=== PATIENT | female | born 1945 | race African-American/Black ===

== ENCOUNTER 2019-09-16 18:29 | Inpatient (IN) | payer MEDICARE ==
[~2019-09-16] VITALS: Ht 160 cm; Wt 75.7 kg
[2019-09-16] MEDS ORDERED: SODIUM CHLORIDE 0.9% 1,000 ML IV ONE (19:30)
[2019-09-16] MEDS ORDERED: VANCOMYCIN PER PHARMACY 1,000 MG IV SCH (19:45)
[2019-09-16] MEDS ORDERED: VANCOMYCIN 1GM/250ML 250 ML IV ONE (20:00)
[2019-09-16 20:06] LABS: Basophils # (auto) 0 uL; Basophils % (auto) 0.3 % (0.0-2.0); Eosinophils # (auto) 0 uL; Hemoglobin 13.1 g/dL (12.2-16.2); Lymphocytes # (auto) 0.2 uL; Mean Corpuscular Hemoglobin 32.7 pg (28.0-32.0); Mean Corpuscular Hgb Conc. 31.5 g/dL (32.0-36.0); Monocytes # (auto) 0.3 uL; Nucleated Red Blood Cells % 0.1 %
[2019-09-16 20:08] LABS: Hematocrit 41.5 % (36.0-46.0); Lymphocytes % (auto) 3.8 % (10.0-50.0); Mean Corpuscular Volume 103.7 fL (80.0-100.0); Monocytes % (auto) 5.9 % (0.0-12.0); Neutrophils # (auto) 5.1 uL; Platelet Count (auto) 216 10^3/uL (140-450); Red Cell Distribution Width 14.3 % (11.8-14.3); White Blood Cell 5.7 10^3/uL (4.4-10.8)
[2019-09-16 20:27] LABS: Albumin 3.2 g/dL (3.4-5.0)
[2019-09-16 20:30] LABS: Bilirubin, Total 0.3 mg/dL (0.2-1.0); Total Protein 8.3 g/dL (6.4-8.2)
[2019-09-16 21:22] LABS: Lactic Acid w/Reflex 3.8 mmol/L (0.4-2.0)
[2019-09-16 22:19] LABS: Partial Thromboplastin Time 26.1 sec (23.64-32.05)
[2019-09-16] MEDS ORDERED: SODIUM CHLORIDE 0.9% 2,550 ML IV ONE (22:30)
[2019-09-16 22:35] LABS: Urine Bacteria NONE SEEN /hpf (None Seen); Urine Blood 2+ /uL (Negative); Urine Mucus MODERATE (None Seen); Urine WBC 1549 /hpf (0 - 5)
[2019-09-17] MEDS ORDERED: TEMAZEPAM 15 MG CAP PO PRN (00:15)
[2019-09-17] MEDS ORDERED: VANCOMYCIN PER PHARMACY 0 MG IV SCH (00:15)
[2019-09-17] MEDS ORDERED: MORPHINE SULF INJ 2 MG/ML SYRINGE 1ML IV PRN (00:15)
[2019-09-17] MEDS ORDERED: NITROGLYCERIN 0.4 MG SL TAB SL PRN (00:15)
[2019-09-17] MEDS ORDERED: FLEET ENEMA(ADULT) 135 ML PR ONE (00:15)
[2019-09-17 00:52] VITALS: BP 114/57
--- NOTE | 2019-09-17 02:00 | NUR ---
Telemetry admit from [facility] admitted to Telemetry unit after SBAR received. Patient oriented to Catarina pope RN, unit, room, bed, and unit policies regarding patient care and visiting hours. Patient now on continuous telemetry monitoring, tele box # 70 and telemetry reading on arrival to unit is SR 95. Patient placed on bedside oxygen, weighed by bed scale and encouraged to call if they need something. All questions and concerns addressed, patient verbalized understanding. Note: Came per jeffcher awake alert, placed in the bed comfortably, vital signs checked.
[2019-09-17] MEDS: ACETAMINOPHEN 325 MG TAB PO PRN ×2 (02:51→12:59)
--- NOTE | 2019-09-17 03:00 | NUR ---
Inserted a Delarosa catheter size 16, with yellow clear urine output coming out of the catheter.
[2019-09-17] MEDS ORDERED: ACET-1156 PO (03:37)
[2019-09-17] MEDS: SODIUM CHLORIDE 0.9% 1,000 ML IV SCH ×2 (04:00→12:58)
[2019-09-17 05:00] VITALS: BP 106/51
[2019-09-17] MEDS ORDERED: PIPERACILLIN-TAZOB 3.375GM 100 ML IV SCH (06:00)
--- NOTE | 2019-09-17 06:00 | NUR ---
IV insertion IV access obtained, via clean sterile technique by inserting gauge catheter at right hand after attempt. IV secured properly. No trauma to site. Patient tolerated procedure well.
--- NOTE | 2019-09-17 06:00 | NUR ---
IV removal IV DC'd in the right A.C with sterile technique, catheter fully intact. Pressure dressing applied to site. Patient tolerated procedure well.
--- NOTE | 2019-09-17 07:14 | NUR ---
Report given to Anjum Angulo, library cataloging technician. at bedside.
--- NOTE | 2019-09-17 08:00 | NUR ---
Opening Shift Note Assumed care of patient. PT is awake and alert. No S/S of distress/SOB or pain. Instructed on POC and to call for assist PRN, will continue to monitor for changes Q1hr and PRN.
[2019-09-17 08:11] VITALS: BP 92/56
[2019-09-17] MEDS: PANTOPRAZOLE 40 MG TAB PO SCH (11:27)
[2019-09-17] MEDS: DOCUSATE SOD 100 MG CAP PO SCH ×2 (11:27→22:00)
[2019-09-17] MEDS: VANCOMYCIN 1GM/250ML 250 ML IV SCH (11:28)
[2019-09-17] MEDS ORDERED: IOHEXOL 350 MG/ML 100ML IJ ONE (12:34)
[2019-09-17] MEDS: ONDANSETRON HCL 4 MG/2 ML VIAL IV PRN ×2 (12:58→20:53)
[2019-09-17 13:00] VITALS: BP 104/55
--- NOTE | 2019-09-17 13:00 | NUR ---
PT REFUSED TO SIGN CT CONSENT WITHOUT SON PRESENT. CALLED SON. NO ANSWER. LEFT VOICEMAIL.
--- NOTE | 2019-09-17 16:00 | NUR ---
MULTIPLE ATTEMPTS TO CONTACT SON. NO ANSWER. RADIOLOGY IS AWARE. STATED THEY MAY ATTEMPT VQ SCAN TOMORROW IF CT CONSENT CAN NOT BE OBTAINED.
[2019-09-17 16:48] VITALS: BP 100/56
[2019-09-17] MEDS: PIPERACILLIN-TAZOB 3.375GM 100 ML IV SCH (20:00)
--- NOTE | 2019-09-17 20:00 | NUR ---
Opening Shift Note Assumed care of patient, awake and alert. No S/S of distress/SOB or pain. Instructed on POC and to call for assist PRN, will continue to monitor for changes Q1hr and PRN.
--- NOTE | 2019-09-17 21:00 | NUR ---
LINENS CHANGED PATIENT HAD SMALL LIQUID BOWEL MOVEMENT. PATIENT REFUSING COLACE AT THIS TIME. WILL CONTINUE TO MONITOR.
[2019-09-17 22:00] VITALS: BP 107/63
[2019-09-18] MEDS: PIPERACILLIN-TAZOB 3.375GM 100 ML IV SCH ×5 (00:35→23:30)
[2019-09-18] MEDS: SODIUM CHLORIDE 0.9% 1,000 ML IV SCH ×2 (01:15→15:06)
[2019-09-18 05:00] VITALS: BP 124/71
--- NOTE | 2019-09-18 06:23 | NUR ---
ATTEMPTED TO CONTACT SON AGAIN. NO RESPONSE. WILL ENDORSE TO ASHLEY BUTCHER.
[2019-09-18 06:26] LABS: Basophils # (auto) 0 uL; Basophils % (auto) 0.6 % (0.0-2.0); Eosinophils # (auto) 0 uL; Eosinophils % (auto) 0.4 % (0.0-7.0); Hematocrit 31.6 % (36.0-46.0); Hemoglobin 10.5 g/dL (12.2-16.2); Lymphocytes # (auto) 0.9 uL; Lymphocytes % (auto) 17.2 % (10.0-50.0); Mean Corpuscular Hemoglobin 33.1 pg (28.0-32.0); Mean Corpuscular Hgb Conc. 33.2 g/dL (32.0-36.0); Mean Corpuscular Volume 99.6 fL (80.0-100.0); Monocytes # (auto) 0.4 uL; Monocytes % (auto) 7.2 % (0.0-12.0); Neutrophils # (auto) 3.9 uL; Neutrophils % (auto) 74.6 % (37.0-80.0); Platelet Count (auto) 182 10^3/uL (140-450); Red Blood Cells 3.18 10^6/uL (4.0-5.20); Red Cell Distribution Width 13.7 % (11.8-14.3); White Blood Cell 5.3 10^3/uL (4.4-10.8)
[2019-09-18 07:35] LABS: BUN/Creatinine Ratio 19.5; Calcium 8.5 mg/dL (8.5-10.1); Potassium 3.1 mmol/L (3.5-5.1)
--- NOTE | 2019-09-18 08:15 | NUR ---
Opening Note Assumed care of patient, she is A & O x3, she does not remember the month or year a this time. Patient is comfortable at this time. POC discussed. Will continue to turn patient Q2h, she states that she transfers to a wheel chair at home and to the toilet with her son. She has not been up since she has been in the hospital, SCDs in place bilaterally. Bed is in lowest, locked position, call light within reach, bed alarm on. Will continue to monitor Q1h and PRN.
[2019-09-18 08:59] VITALS: BP 145/85
[2019-09-18] MEDS: ONDANSETRON HCL 4 MG/2 ML VIAL IV PRN (09:29)
[2019-09-18] MEDS: PANTOPRAZOLE 40 MG TAB PO SCH (09:29)
[2019-09-18] MEDS: DOCUSATE SOD 100 MG CAP PO SCH ×2 (09:30→22:00)
[2019-09-18] MEDS: ACETAMINOPHEN 325 MG TAB PO PRN (09:30)
--- NOTE | 2019-09-18 10:00 | NUR ---
Spoke to Mirtha in radiology They will do a VQ scan on patient instead of CT with contrast per Dr. Ruth, they can still see a PE with this exam and no consents needed, they have been unsuccessful with contacting the patient son for consent, patient wants her son to give consent. Will let know.
[2019-09-18] MEDS: VANCOMYCIN 1GM/250ML 250 ML IV SCH (11:42)
--- NOTE | 2019-09-18 12:30 | NUR ---
Dr. Grene at bedside. Informed Dr. Green of decreased potassium level, and the VQ scan that may have to be done if family cannot be contacted. Orders received, read back and verified. Will continue to monitor Q1h and PRN.
[2019-09-18] MEDS ORDERED: POTASSIUM CHL 20 Meq TABLET PO ONE (13:00)
--- NOTE | 2019-09-18 13:00 | NUR ---
Patient has had two loose BM today. She is incontinent of stool.
[2019-09-18 13:45] VITALS: BP 118/71
--- NOTE | 2019-09-18 16:08 | NUR ---
Spoke to son on telephone regarding CT with contrast Two RNs, myself and Kristi Hardwick spoke to son Narciso, he agreed to have the CT chest with contrast. Patient also agreed if son said okay. Will notify Radiology.
[2019-09-18] MEDS ORDERED: IOHEXOL 350 MG/ML 100ML IJ ONE (16:17)
[2019-09-18 16:51] VITALS: BP 119/68
[2019-09-18 22:00] VITALS: BP 147/88
[2019-09-19] MEDS: SODIUM CHLORIDE 0.9% 1,000 ML IV SCH ×2 (02:15→14:45)
[2019-09-19 05:00] VITALS: BP 154/91
[2019-09-19] MEDS: PIPERACILLIN-TAZOB 3.375GM 100 ML IV SCH ×3 (05:36→18:00)
--- NOTE | 2019-09-19 08:00 | NUR ---
Opening Note Assumed care of patient, she is A & O x3, no s/s of distress. Patient is bed rest and Q2h turn, patient is comfortable at this time, SCDs bilaterally to lower extremities. POC discussed. Bed is in lowest, locked position, call light within reach. Will continue to monitor Q1h and PRN.
[2019-09-19 09:00] VITALS: BP 140/86
[2019-09-19] MEDS: DOCUSATE SOD 100 MG CAP PO SCH (09:26)
[2019-09-19] MEDS: PANTOPRAZOLE 40 MG TAB PO SCH (09:27)
[2019-09-19] MEDS: VANCOMYCIN 1GM/250ML 250 ML IV SCH (11:00)
--- NOTE | 2019-09-19 11:35 | NUR ---
Dr. Green at bedside Son at bedside. Informed patient and son that she will be getting discharged. The son needed to go home to get a few things ready for the family member. Will continue to monitor patient at this time.
[2019-09-19 13:00] VITALS: BP 140/82
--- NOTE | 2019-09-19 14:00 | NUR ---
Patient spoke to family and said he will be on his way soon to pick her up.
--- NOTE | 2019-09-19 16:15 | NUR ---
This RN called to speak to son Narciso, he will be here soon to cook pickled meat patient.
[2019-09-19 16:44] VITALS: BP 146/80
--- NOTE | 2019-09-19 17:30 | NUR ---
Patient cleaned Both IVs removed, pressure dressing applied. Delarosa catheter removed. Tele box removed and sent to ICU. Awaiting family.
--- NOTE | 2019-09-19 18:15 | NUR ---
Discharge instructions given as ordered. Encourage to follow up with PMD as instructed. All questions and concerns addressed. Patient verbalized understanding. Medication reconciliation form completed and copy given to patient. IV removed with catheter intact, pressure dressing applied, gutierrez catheter removed. Telemetry unit returned to ICU. Patient taken to vehicle via wheelchair with all personal belongings, accompanied by staff and family member. No distress noted at time of departure.
--- NOTE | 2019-09-19 18:33 | NUR ---
Discharged. Addendum: 09/19/19 at 1833 by Jennifer Olivares RN Amended: Links added.
== END 2019-09-19 18:15 | disposition home or self-care (01) | DRG 872 ==
LOC: EDBD 18:29 → ER 18:29 → TELE 18:30 → TELE-WESTW 09-17 02:00
PROVIDERS: ADMIT Nurse Practitioner; ATTEND Family Medicine
DX: A41.9 Sepsis, unspecified organism (principal); N39.0 Urinary tract infection, site not specified; N18.3 Chronic kidney disease, stage 3 (moderate); B95.1 Streptococcus, group B, as the cause of diseases classified elsewhere; E86.0 Dehydration; F03.90 Unspecified dementia, unspecified severity, without behavioral disturbance, psychotic disturbance, mood disturbance, and anxiety; I12.9 Hypertensive chronic kidney disease with stage 1 through stage 4 chronic kidney disease, or unspecified chronic kidney disease; K80.20 Calculus of gallbladder without cholecystitis without obstruction
CPT/HCPCS: 36415; 36600; 71045; 71275; 74176; 76705; 80048; 80053; 80202; 81001; 82550; 82565; 82805; 83605; 83880; 84484; 85025; 85379; 85384; 85610; 85730; 87040; 87077; 87086; 87186; 93970; 96365; 99291; G0378; J2405; J2543

== ENCOUNTER 2020-05-21 13:46 | Inpatient (IN) | payer MEDICARE ==
[~2020-05-21] VITALS: Ht 157.5 cm; Wt 67.5 kg
[~2020-05-21 13:46] MED LIST: ACET-1156 PO
[2020-05-21 15:03] LABS: Basophils # (auto) 0.1 10 ^3/uL (0-0.2); Basophils % (auto) 1.1 % (0.0-2.0); Eosinophils # (auto) 0 10 ^3/uL (0-0.8); Eosinophils % (auto) 0.7 % (0.0-7.0); Hematocrit 35.7 % (36.0-46.0); Hemoglobin 11.8 g/dL (12.2-16.2); Lymphocytes # (auto) 0.9 10 ^3/uL (0.4-5.4); Lymphocytes % (auto) 17.6 % (10.0-50.0); Mean Corpuscular Hgb Conc. 33.2 g/dL (32.0-36.0); Mean Corpuscular Volume 93.3 fL (80.0-100.0); Monocytes # (auto) 0.4 10 ^3/uL (0-1.3); Monocytes % (auto) 8.6 % (0.0-12.0); Neutrophils # (auto) 3.6 10 ^3/uL (1.6-8.6); Nucleated Red Blood Cells % 0.1 %; Platelet Count (auto) 330 10^3/uL (140-450); Red Blood Cells 3.83 10^6/uL (4.0-5.20)
[2020-05-21 15:17] LABS: Albumin 2.9 g/dL (3.4-5.0); BUN/Creatinine Ratio 12.7; Calcium 8.7 mg/dL (8.5-10.1)
[2020-05-21 15:20] LABS: Bilirubin, Total 0.6 mg/dL (0.2-1.0); Total Protein 8.6 g/dL (6.4-8.2)
[2020-05-21 15:34] LABS: Lactic Acid w/Reflex 2.3 mmol/L (0.4-2.0)
[2020-05-21 15:37] LABS: Potassium 2.8 mmol/L (3.5-5.1)
[2020-05-21] MEDS ORDERED: ALBUAER3 IN (15:40)
[2020-05-21] MEDS ORDERED: PIPERACILLIN-TAZOB 3.375GM 100 ML IV ONE (16:00)
[2020-05-21] MEDS ORDERED: VANCOMYCIN PER PHARMACY 0 MG IV SCH (16:00)
[2020-05-21] MEDS ORDERED: POTASSIUM CHLORIDE 60 MEQ, LIDOCAINE 1% (LOCAL ANESTH.) 6 ML in SODIUM CHL 0.9% 500 ML IV ONE (16:00)
[2020-05-21] MEDS: SOD CHL 0.9%/ KCL 20MEQ 1,000 ML IV SCH (16:00)
[2020-05-21] MEDS ORDERED: LACTATED RINGER'S 1,000 ML IV ONE (16:00)
[2020-05-21] MEDS ORDERED: ACETAMINOPHEN 325 MG TAB PO PRN (16:15)
[2020-05-21] MEDS ORDERED: ONDANSETRON HCL 4 MG/2 ML VIAL IV PRN (16:15)
[2020-05-21] MEDS ORDERED: DOCUSATE SOD 100 MG CAP PO PRN (16:15)
[2020-05-21] MEDS ORDERED: HYDROcodone-ACET 5/325MG TAB PO PRN (16:15)
[2020-05-21] MEDS ORDERED: LORazepam 0.5 MG TAB PO PRN (16:15)
[2020-05-21] MEDS ORDERED: POTASSIUM CHL 20MEQ/100ML 100 ML IV ONE (16:15)
[2020-05-21] MEDS ORDERED: MORPHINE SULF INJ 2 MG/ML SYRINGE 1ML IV PRN ×2 (16:15)
[2020-05-21] MEDS ORDERED: ALUM & MAG HYDROX-SIMETH LIQ(MAALOX) 30 ML PO PRN (16:15)
[2020-05-21] MEDS ORDERED: NITROGLYCERIN 0.4 MG SL TAB SL PRN (16:15)
[2020-05-21 17:12] LABS: Cholesterol 147 mg/dL (< 200); HDL Cholesterol 40 mg/dL (40-59); LDL Cholesterol 90 mg/dL (< 100); Triglycerides 90 mg/dL (< 150)
--- NOTE | 2020-05-21 17:45 | NUR ---
WOUND CARE NOTE: Wound care in to see patient per wound care request regarding multiple wounds/pressure injuries that are noted present on admission. Patient is 74 years old female with admitting diagnosis of Suspected Sepsis secondary to Rt. buttock Pressure Injury. Patient is resting in ER bed #15. Patient's eyes are closed, respond to verbal and tactile stimuli. She's in no stated pain at this time,however mild pain noted upon turning. Patient is contracted, on position and max assist in turning and repositioning. Skin/wound assessment done with the assistance of EMT students. Patient noted with open Unstageable pressure injury to Rt posterolateral hip (4x6.5x2cm) and with 100% stable eschar pressure injury to Rt buttock (4x5cm). Rt hip wound has 60% black eschar at center,10% yellow slough and 30% dusky red at wound edges. There's 2 cm undermining noted from 1:00-3:00 o'clock position. Minimal serous drainage with foul odor noted. Cleansed patient's Rt hip wounds with NS, took specimen for wound culture and sent to lab for processing. Applied Thera honey gel wound wound bed area and covered with large Opti foam gentle dressing. Patient's Rt medial sacrum has 9x3cm open full thickness pressure injury with no measurable depth. Medial sacral wound consistent with Stage 3 pressure injury or resurface pressure injury from old pressure injury of unknown age and stage. Patient is incontinent and passed moderate amount of pasty stool. In addition, patient came in wearing disposable adult brief. Brendan care given, applied Z Guard cream to Rt buttock eschar wound, medial sacral wound and perineum. Covered medial sacral wound with Opti foam gentle dressing. Patient's L medial knee also noted with intact pink scar tissue appears to be from old wound/pressure injury. Photograph of patient's wounds are taken for reference. Repositioned patient for comfort facing her Lt side, redistributed pressure points with rolled blankets. Patient tolerated well. Bed in low position, side rails up. RECOMMENDATION: Nursing to continue with Daily/PRN dressing change to Rt hip wound, BID/PRN dressing change to medial sacral and Rt buttock wounds per MD order,Dietary consult, surgical consult for possible wound debridement, frequent turning and repositioning schedule as condition permits, redistribute pressure points with pillows, air mattress (ordered), elevate heels on pillows, frequent brendan care/check, keep clean and dry,continue monitoring by wound care while patient is hospitalized. Addendum: 05/21/20 at 1903 by Trisha Lim RN Amended: Links added.
--- NOTE | 2020-05-21 17:59 | NUR ---
AIR MATTRESS: Air mattress ordered at [facility] 05/21/20 @ 2350, Reference# [id number]. Call [facility] at [phone] if needed to follow up. Addendum: 05/21/20 at 1800 by Trisha Lim RN Amended: Links added.
[2020-05-21] MEDS: IPRATROPIUM BROM 0.5 MG/2.5ML INH SOL NEB SCH ×2 (18:19→22:22)
[2020-05-21 20:25] VITALS: BP 117/68
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
[2020-05-21 22:00] VITALS: BP 117/68
[2020-05-21] MEDS: FAMOTIDINE (10MG/ML) 2ML VL IV SCH (22:00)
--- NOTE | 2020-05-21 22:00 | NUR ---
PT TRANSFERRED TO SPECIALTY BED WITH HILL ROM MATTRESS NOW. PT RANJANA WELL.
--- NOTE | 2020-05-21 22:21 | NUR ---
POTASSIUM COMPLETE AND LR BOLUS STARTED NOW.
[2020-05-21 22:50] VITALS: BP 110/50
[2020-05-21] MEDS: VANCOMYCIN 750mg/250ml 250 ML IV SCH (23:22)
[2020-05-22] MEDS: PIPERACILLIN-TAZOB 3.375GM 100 ML IV SCH ×4 (01:00→18:01)
[2020-05-22] MEDS: IPRATROPIUM BROM 0.5 MG/2.5ML INH SOL NEB SCH ×6 (02:00→21:58)
[2020-05-22 04:38] VITALS: BP 135/70
[2020-05-22] MEDS: SOD CHL 0.9%/ KCL 20MEQ 1,000 ML IV SCH ×2 (05:20→18:04)
[2020-05-22 05:59] LABS: Basophils # (auto) 0.1 10 ^3/uL (0-0.2); Basophils % (auto) 1.2 % (0.0-2.0); Eosinophils # (auto) 0.1 10 ^3/uL (0-0.8); Eosinophils % (auto) 3.3 % (0.0-7.0); Hematocrit 28.9 % (36.0-46.0); Hemoglobin 9.8 g/dL (12.2-16.2); Lymphocytes # (auto) 1.3 10 ^3/uL (0.4-5.4); Lymphocytes % (auto) 30.1 % (10.0-50.0); Mean Corpuscular Hemoglobin 31.6 pg (28.0-32.0); Mean Corpuscular Volume 93.2 fL (80.0-100.0); Monocytes # (auto) 0.5 10 ^3/uL (0-1.3); Monocytes % (auto) 11.5 % (0.0-12.0); Neutrophils # (auto) 2.4 10 ^3/uL (1.6-8.6); Neutrophils % (auto) 53.9 % (37.0-80.0); Nucleated Red Blood Cells % 0.1 %; Platelet Count (auto) 262 10^3/uL (140-450); White Blood Cell 4.4 10^3/uL (4.4-10.8)
[2020-05-22 06:17] LABS: Potassium 3.3 mmol/L (3.5-5.1)
[2020-05-22 06:28] LABS: BUN/Creatinine Ratio 14.1; Calcium 8.2 mg/dL (8.5-10.1)
--- NOTE | 2020-05-22 07:40 | NUR ---
Opening note Assumed care of patient from NOC RN. Patient is AOx2, no s/s of distress noted. Bed is in lowest locked position, call light with in reach, and side rails up x2. Updated patient on plan of care and reinforcement is needed. Will continue to monitor q1hr and PRN.
[2020-05-22 09:00] VITALS: BP 121/62
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
[2020-05-22] MEDS: ENOXAPARIN SOD 40 MG/0.4 ML SYRINGE SC SCH ×2 (09:51→09:56)
[2020-05-22] MEDS: FAMOTIDINE (10MG/ML) 2ML VL IV SCH (09:51)
[2020-05-22] MEDS ORDERED: VANCOMYCIN 1GM/250ML 250 ML IV SCH (10:00)
--- NOTE | 2020-05-22 11:39 | NUR ---
Nutrition Consult/assessment Notes please see attached link for complete assessment Est energy needs BW 60 [id number] kcal (25-30 kcal/kg) Est protein needs: 60-78g (1-1.3g/kg BW r/t wounds) Will reassess prn. Addendum: 05/22/20 at [address] Amended: Links added.
--- NOTE | 2020-05-22 12:25 | NUR ---
Physician rounding Dr. Green at bedside. New orders received. Will follow through.
[2020-05-22] MEDS ORDERED: POTASSIUM CHL 20 Meq TABLET PO ONE (12:45)
--- NOTE | 2020-05-22 15:30 | NUR ---
Linen change Patient cleaned and linen changed. Wound dressings changed as ordered as well. Patient tolerated well.
[2020-05-22 17:00] VITALS: BP 132/75
--- NOTE | 2020-05-22 19:13 | NUR ---
End of shift note Endorsed care to NOC RN. No s/s of distress noted.
[2020-05-22] MEDS: VANCOMYCIN 750mg/250ml 250 ML IV SCH (22:26)
[2020-05-22 22:30] VITALS: BP 107/54
[2020-05-23] MEDS: PIPERACILLIN-TAZOB 3.375GM 100 ML IV SCH ×4 (01:00→17:27)
[2020-05-23] MEDS: IPRATROPIUM BROM 0.5 MG/2.5ML INH SOL NEB SCH ×6 (02:33→22:11)
--- NOTE | 2020-05-23 03:38 | NUR ---
NEW IV STARTED AT THIS TIME. 22G RIGHT WRIST.
[2020-05-23 05:20] VITALS: BP 114/60
--- NOTE | 2020-05-23 07:30 | NUR ---
Opening Shift Note RECEIVED REPORT FROM NOC RN. Assumed care of patient, awake and alert. No S/S of distress/SOB or pain. BED IN LOWEST, LOCKED POSITION WITH SIDERAILS UP x2 AND CALL LIGHT WITHIN REACH. Instructed on POC and to call for assist PRN, will continue to monitor for changes Q1hr and PRN.
[2020-05-23] MEDS: SOD CHL 0.9%/ KCL 20MEQ 1,000 ML IV SCH ×2 (08:34→21:20)
[2020-05-23 08:44] VITALS: BP 110/64
[2020-05-23] MEDS: FAMOTIDINE (10MG/ML) 2ML VL IV SCH (10:00)
[2020-05-23] MEDS: ZINC SULFATE 220mg CAP or TAB PO SCH (10:00)
[2020-05-23] MEDS: ASCORBIC ACID 500 MG TAB PO SCH (10:00)
[2020-05-23] MEDS: MULTIPLE VITAMIN TAB PO SCH (10:00)
[2020-05-23] MEDS: ENOXAPARIN SOD 40 MG/0.4 ML SYRINGE SC SCH (10:00)
--- NOTE | 2020-05-23 10:00 | NUR ---
DR. COLLAZO AT BEDSIDE. NO SURGICAL INTERVENTION.
[2020-05-23] MEDS: Ensure Enlive Chocolate 8oz Bottle PO SCH ×2 (12:34→17:27)
[2020-05-23 13:30] VITALS: BP 109/66
[2020-05-23 16:11] VITALS: BP 104/69
--- NOTE | 2020-05-23 19:15 | NUR ---
OPENING SHIFT NOTE Assumed care of patient, patient is alert and oriented to self. Currently on RA with no S/S of distress or SOB noted at this time. Patient is on bedrest currently on an air mattress. Bed in lowest position, locked, side rails up x2. POC discussed with patient and patient verbalized understanding. Will continue to reinforce POC with patient. Call light within reach, patient encouraged to call for assistance as needed. Will continue to monitor Q1hr/PRN.
[2020-05-23] MEDS: VANCOMYCIN 750mg/250ml 250 ML IV SCH (21:01)
[2020-05-23 22:00] VITALS: BP 120/77
[2020-05-24] VITALS (8 sets, daily range): BP systolic 114–150; BP diastolic 61–95
[2020-05-24] MEDS: IPRATROPIUM BROM 0.5 MG/2.5ML INH SOL NEB SCH ×6 (02:32→22:49)
--- NOTE | 2020-05-24 02:32 | NUR ---
Respiratory note: PT SEEN AND ASSESSED FOR SCHEDULED MED NEB TX AT 0232. PT REFUSED HER TX AT THIS TIME STATING THAT SHE WANTS TO SLEEP. NO DISTRESS NOTED. HR 77 RR 16 SP02 96% ON ROOM AIR.
--- NOTE | 2020-05-24 03:44 | NUR ---
WOUND DRESSING CHANGED Wound dressings changed as ordered. Patient tolerated well. Patient cleaned and linen changed.
[2020-05-24] MEDS: PIPERACILLIN-TAZOB 3.375GM 100 ML IV SCH ×2 (05:32)
--- NOTE | 2020-05-24 07:26 | NUR ---
CARE ENDORSED TO RALF BUTCHER
--- NOTE | 2020-05-24 07:30 | NUR ---
Opening Shift Note Assuming care of patient at this time. Patient is awake, alert, and oriented to self, year, and location. Patient denies pain. Patient shows no signs or symptoms of distress or shortness of breath. Bed is locked and lowered with side rails up x2. Instructed patient on the plan of care for today and to call for assistance as needed. Call light within reach. Will continue to round hourly and as needed.
[2020-05-24] MEDS: Ensure Enlive Chocolate 8oz Bottle PO SCH ×3 (08:30→17:59)
--- NOTE | 2020-05-24 09:42 | NUR ---
at bedside Dr. Green at bedside discussing plan of care with patient and this RN.
[2020-05-24] MEDS: ZINC SULFATE 220mg CAP or TAB PO SCH (10:38)
[2020-05-24] MEDS: FAMOTIDINE (10MG/ML) 2ML VL IV SCH (10:38)
[2020-05-24] MEDS: MULTIPLE VITAMIN TAB PO SCH (10:38)
[2020-05-24] MEDS: levoFLOXacin 500MG 100 ML IV SCH (10:38)
[2020-05-24] MEDS: SOD CHL 0.9%/ KCL 20MEQ 1,000 ML IV SCH ×2 (10:40→23:53)
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
[2020-05-24] MEDS: ASCORBIC ACID 500 MG TAB PO SCH (13:00)
[2020-05-24] MEDS: ENOXAPARIN SOD 40 MG/0.4 ML SYRINGE SC SCH (13:00)
--- NOTE | 2020-05-24 13:00 | NUR ---
Lovenox/Vitamin C Med shipment has came in for lovenox and vitamin C. Will administer late according to MDs orders.
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
--- NOTE | 2020-05-24 15:48 | NUR ---
Call to pharmacy Call to pharmacy at this time. Antibiotic that was due at 1400 is still not on unit. Pharmacy to send in bullet.
[2020-05-24] MEDS: MEROPENEM 500MG IVPB 50 ML IV SCH ×2 (16:00→21:59)
--- NOTE | 2020-05-24 18:19 | NUR ---
Wound Care Wound care done to patient's wounds at this time. Patient tolerated well.
--- NOTE | 2020-05-24 19:20 | NUR ---
Opening Shift Note Assuming care of patient. Patient is awake, alert, and oriented X 1. Patient shows no signs or symptoms of respiratory distress. Bed is in lowest locked position, side rails up x 3, call light is within reach, bed alarm ON. Instructed patient on the plan of care and to call for assistance as needed. Will continue to monitor Q1H and/or as needed.
--- NOTE | 2020-05-24 19:22 | NUR ---
Closing Shift Patient resting in bed. No distress noted. Report given. Will endorse care to the prefabricated houses trimmer RN.
[2020-05-25] VITALS (7 sets, daily range): BP systolic 102–155; BP diastolic 66–96
[2020-05-25] MEDS: IPRATROPIUM BROM 0.5 MG/2.5ML INH SOL NEB SCH ×6 (02:26→22:26)
[2020-05-25] MEDS: MEROPENEM 500MG IVPB 50 ML IV SCH ×2 (05:56→15:18)
--- NOTE | 2020-05-25 07:40 | NUR ---
Opening Shift Note Assumed care of patient, awake and alert. Respirations are even and non labored on room air. Patient is on specialty mattress. GENIE Shannon was with the patient at time of assessment, bed bath was given and brendan care performed. Z Guard applied to potential areas of breakdown or moisture. No S/S of distress/SOB or pain. Bed is in the lowest and locked position with side rails up x 2, bed alarm on and call light within reach. Attempted to instruct on POC, patient is confused and oriented to self at this time. Will continue to monitor for changes Q1hr and PRN.
[2020-05-25] MEDS: MULTIPLE VITAMIN TAB PO SCH (10:58)
[2020-05-25] MEDS: FAMOTIDINE (10MG/ML) 2ML VL IV SCH (10:58)
[2020-05-25] MEDS: ASCORBIC ACID 500 MG TAB PO SCH (10:58)
[2020-05-25] MEDS: ZINC SULFATE 220mg CAP or TAB PO SCH (10:58)
[2020-05-25] MEDS: Ensure Enlive Chocolate 8oz Bottle PO SCH ×3 (10:59→18:50)
[2020-05-25] MEDS: ENOXAPARIN SOD 40 MG/0.4 ML SYRINGE SC SCH (10:59)
[2020-05-25] MEDS: levoFLOXacin 500MG 100 ML IV SCH (10:59)
--- NOTE | 2020-05-25 11:50 | NUR ---
Clarification received Called and spoke to son Narciso. Verified the current password. Password updated.
--- NOTE | 2020-05-25 11:51 | NUR ---
Nutrition Followup Note Wt 65.8kg Pt was alert and oriented at time of rounds. Pt reports appetite is good and drinks all of oral supplements provided. Pt denies any nausea and vomiting, reports diarrhea yesterday. Pt with a fair appetite aeb pt with 65% avg po intake x 2 days per RN note. Pt also with Ensure Enlive TID. Est energy needs BW 60 [id number] kcal (25-30 kcal/kg) Est protein needs: 60-78g (1-1.3g/kg BW r/t wounds) Will reassess prn. Labs: K 3.3L, Cl 110H, Ca 8.2L, Alb 2.9L BM: 1 BM 05/25 per RN note Skin: BS 11 high risk, pt with mult wounds on buttock, hip, full details in client care coordinator note PES: Altered nutrition related lab values r.t current chronic medical condition aeb mod hypoalb Increased nutrient needs r/t chronic medical condition aeb pt`s with wounds Comments: 1) Continue with ensure enlive 1 carton bid 2) Continue with mVI/VIT C BID 3) continue assistance with meals 4) continue current plan of care Expected Outcomes/Goals: pt will have better healing wounds pt will have improved labs F/u mod 3-5 days
[2020-05-25] MEDS: SOD CHL 0.9%/ KCL 20MEQ 1,000 ML IV SCH (12:07)
--- NOTE | 2020-05-25 13:50 | NUR ---
Wound care Wound care performed on patient per order. Patient tolerated well.
--- NOTE | 2020-05-25 19:20 | NUR ---
Opening Shift Note Patient is AOx2. She answers to name, but mumbles unclear words. Patient is repositioned on left side. Wounds on sacral and buttock area have been covered by Day shift RN with Optifoam dressings. Sites are clean and dry. No s/s of distress or SOB. No pain noted. Patient bed locked in lowest position and HOB at 40 degrees. Call light within reach and DOCUMENT PREPARER MICROFILMING sitting close to room. Will continue to monitor.
[2020-05-25] MEDS: MEROPENEM 1GM IVPB 100 ML IV SCH (23:16)
[2020-05-26] MEDS: IPRATROPIUM BROM 0.5 MG/2.5ML INH SOL NEB SCH ×6 (02:00→22:40)
[2020-05-26] MEDS: SOD CHL 0.9%/ KCL 20MEQ 1,000 ML IV SCH ×2 (02:40→16:00)
[2020-05-26 05:00] VITALS: BP 126/78
--- NOTE | 2020-05-26 07:35 | NUR ---
Opening Shift Note Assumed care of patient, awake and alert. Respirations are even and non labored on room air. Patient is on specialty mattress. No S/S of distress/SOB or pain. Bed is in the lowest and locked position with side rails up x 2, bed alarm on and call light within reach. Attempted to instruct on POC, patient is more oriented than yesterday but will attempt to discuss POC in several sessions. Will continue to monitor for changes Q1hr and PRN.
[2020-05-26 08:32] VITALS: BP 136/77
[2020-05-26] MEDS: levoFLOXacin 500MG 100 ML IV SCH (09:05)
[2020-05-26] MEDS: Ensure Enlive Chocolate 8oz Bottle PO SCH ×2 (09:05→13:43)
[2020-05-26] MEDS: FAMOTIDINE (10MG/ML) 2ML VL IV SCH (09:05)
[2020-05-26] MEDS: ENOXAPARIN SOD 40 MG/0.4 ML SYRINGE SC SCH (09:06)
[2020-05-26] MEDS: MULTIPLE VITAMIN TAB PO SCH (09:06)
[2020-05-26] MEDS: ASCORBIC ACID 500 MG TAB PO SCH (09:06)
[2020-05-26] MEDS: ZINC SULFATE 220mg CAP or TAB PO SCH (09:06)
--- NOTE | 2020-05-26 09:20 | NUR ---
Wound care performed As ordered and all dressings changed. Will continue to monitor.
--- NOTE | 2020-05-26 10:08 | NUR ---
re-assessment I have left another message for patients constance Stuart [phone]. Waiting for call back now. Per October GUADALUPE Narciso agreed to SNF placement yesterday over the phone. Addendum: 05/26/20 at 1009 by Crystal RAMACHANDRAN Amended: Links added.
[2020-05-26 12:32] VITALS: BP 143/78
--- NOTE | 2020-05-26 13:35 | NUR ---
MIDLINE ATTEMPTED TO PLACE MIDLINE. UPON ASSESSMENT OF CEPHALIC VEIN PATIENT BEGAN TO GET AGITATED WITH THE PROCESS AND TOLD ME TO STOP AND LEAVE. 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 PATIENT ALSO TOLD PRIMARY RN SHE DID NOT WANT IT AND WAS TIRED OF GETTING POKED. PRIMARY RN SAID SHE WAS GOING TO CALL PATIENT SON AND MAYBE HE CAN TALK TO HER ABOUT SITUATION. WILL REASSESS SITUATION AT A LATER TIME.
[2020-05-26] MEDS: MEROPENEM 1GM IVPB 100 ML IV SCH ×2 (13:44→22:35)
--- NOTE | 2020-05-26 15:20 | NUR ---
MIDLINE UPON REASSESSMENT OF PATIENTS BILATERAL UPPER EXTREMITIES SHE IS NOT A CANDIDATE FOR MIDLINE AT THIS TIME. 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 HER CEPHALIC VEINS ON HER BUE ARE TOO SMALL TO ACCESS AND I CAN NOT VISUALLY FOLLOW EITHER ONE OF THEM UP THE ARM LONG ENOUGH FOR A 10 CM LINE. KELLY PRIMARY RN AT BEDSIDE DURING ASSESSMENT AND IS AWARE.
--- NOTE | 2020-05-26 16:25 | NUR ---
D/C Planning Per social service consult for SNF placement. Per SW II patient family is requesting [facility]. Faxed clinical information to [facility]. Pending acceptance.
[2020-05-26 16:36] VITALS: BP 148/87
--- NOTE | 2020-05-26 16:44 | NUR ---
assessment Narciso patients son called me back. Per Narciso prior to admission patient lived home with him and functioned with his assistance. Per Narciso patient has a hospital bed and wheelchair for home use. Per Narciso he does turn patient every few hours, but patient turns herself right back to the same position. Narciso informed me he has called his sisters and informed them that he needs more help with patient. I informed Narciso that patient is going to need SNF for IV ABX and wound care. I read a list of SNF's to Narciso and per Narciso he wants patient to go to [facility]. [facility] will satisfy order. I have provided Narciso with [facility] resource and informed Narciso that patient will need home health on discharge from SNF. I will follow up with patients daughter Jaquelin for further help at home. Narciso verbalized understanding and agreed to discharge plan to SNF. Addendum: 05/26/20 at 1651 by Crystal RAMACHANDRAN Amended: Links added.
--- NOTE | 2020-05-26 18:26 | NUR ---
AT BEDSIDE FOR MED BRANDEN YOUNG.
--- NOTE | 2020-05-26 19:25 | NUR ---
Opening Shift Note Patient is AOx2. She answers to name, but mumbles unclear words.According to morning shift RN, patient speaks clearer and may use short sentences. Patient is repositioned on her right side. No s/s of distress or SOB and No pain noted. Patient bed locked in lowest position and HOB at 40 degrees. Call light within reach and DOMESTIC MAID sitting close to room. Will continue to monitor.
[2020-05-26 20:00] VITALS: BP 120/71
[2020-05-26 22:00] VITALS: BP 106/70
--- NOTE | 2020-05-26 22:00 | NUR ---
IV insertion IV access obtained, via clean sterile technique by inserting 22 gauge catheter at left hand after 1 attempt(s). IV secured properly. No trauma to site. Patient tolerated procedure well.
[2020-05-26] MEDS ORDERED: MEROPENEM 1GM IVPB 100 ML IV SCH (22:45)
--- NOTE | 2020-05-26 22:45 | NUR ---
IV removal - Left lower arm; leaking IV IV DC'd with sterile technique, catheter fully intact. Pressure dressing applied to site. Patient tolerated procedure well.
--- NOTE | 2020-05-26 22:45 | NUR ---
AT BEDSIDE FOR MED BRANDEN YOUNG.
[2020-05-27] MEDS: IPRATROPIUM BROM 0.5 MG/2.5ML INH SOL NEB SCH ×3 (02:13→10:42)
--- NOTE | 2020-05-27 02:16 | NUR ---
AT BEDSIDE FOR MED BRANDEN YOUNG.
[2020-05-27 05:00] VITALS: BP 141/84
[2020-05-27] MEDS: SOD CHL 0.9%/ KCL 20MEQ 1,000 ML IV SCH (05:44)
[2020-05-27] MEDS: Ensure Enlive Chocolate 8oz Bottle PO SCH ×2 (08:00→12:32)
--- NOTE | 2020-05-27 08:00 | NUR ---
OPENING SHIFT NOTE ASSUMED CARE OF PATIENT AWAKE AND ALERT X2. NO S/S OF DISTRESS NOTED OR COMPLAINTS OF PAIN. PATIENT IS RESISTIVE TO CARE AND REFUSES TO PARTICIPATE IN PHYSICAL ASSESSMENT. BED IS IN LOWEST, LOCKED POSITION WITH SIDE RAILS UP X2, CALL LIGHT WITHIN REACH AND BED ALARM ON FOR SAFETY. WILL CONTINUE TO MONITOR Q1H AND PRN.
--- NOTE | 2020-05-27 09:30 | NUR ---
AT BEDSIDE DR ESCOTO AT BEDSIDE ROUNDING ON PATIENT.
[2020-05-27 10:00] VITALS: BP 146/91
[2020-05-27] MEDS ORDERED: CIPROFLOXACIN HCL 500 MG TAB PO SCH (10:00)
[2020-05-27] MEDS: FAMOTIDINE (10MG/ML) 2ML VL IV SCH (10:19)
[2020-05-27] MEDS: MULTIPLE VITAMIN TAB PO SCH (10:19)
[2020-05-27] MEDS: ASCORBIC ACID 500 MG TAB PO SCH (10:19)
[2020-05-27] MEDS: ENOXAPARIN SOD 40 MG/0.4 ML SYRINGE SC SCH (10:19)
[2020-05-27] MEDS: ZINC SULFATE 220mg CAP or TAB PO SCH (10:19)
--- NOTE | 2020-05-27 11:00 | NUR ---
WOUND PHOTOS DISCHARGE WOUND PHOTOS TAKEN AND WOUND CARE PROVIDED TO PATIENT. PATIENT TOLERATED WELL. WILL CONTINUE TO MONITOR.
[2020-05-27] MEDS ORDERED: CEPHALEXIN 250 MG CAP PO SCH (12:00)
--- NOTE | 2020-05-27 12:26 | NUR ---
D/C Planning Per [facility] [place] patient has been accepted to room 27a accepting , Dr. Ceballos. [facility] has been arranged [facility] with a 2:45 citrus picker time. Informed RN Nicole.
--- NOTE | 2020-05-27 12:28 | NUR ---
REPORT CALLED CALLED REPORT TO [facility]. .
[2020-05-27 13:00] VITALS: BP 112/64
--- NOTE | 2020-05-27 15:36 | NUR ---
Discharge instructions given as ordered. Encourage to follow up with PMD as instructed. All questions and concerns addressed. Patient verbalized understanding. Both IVs removed with catheter intact, pressure dressings applied. Telemetry unit returned to ICU. Patient taken to vehicle via gurney with all personal belongings via [employer]. No distress noted at time of departure.
== END 2020-05-27 15:45 | DRG 871 ==
LOC: ER 13:46 → TELE 13:47 → TELE-CENTR 20:25
PROVIDERS: ADMIT Hospitalist; ATTEND Family Medicine
DX: A41.9 Sepsis, unspecified organism (principal); E43 Unspecified severe protein-calorie malnutrition; R53.2 Functional quadriplegia; J98.11 Atelectasis; I96 Gangrene, not elsewhere classified; B96.5 Pseudomonas (aeruginosa) (mallei) (pseudomallei) as the cause of diseases classified elsewhere; L89.310 Pressure ulcer of right buttock, unstageable; J44.9 Chronic obstructive pulmonary disease, unspecified; Z20.828 Contact with and (suspected) exposure to other viral communicable diseases; D64.9 Anemia, unspecified; F03.90 Unspecified dementia, unspecified severity, without behavioral disturbance, psychotic disturbance, mood disturbance, and anxiety; R41.82 Altered mental status, unspecified; E87.6 Hypokalemia; R62.7 Adult failure to thrive; I10 Essential (primary) hypertension; B96.1 Klebsiella pneumoniae [K. pneumoniae] as the cause of diseases classified elsewhere; Z68.27 Body mass index [BMI] 27.0-27.9, adult; Z74.01 Bed confinement status
CPT/HCPCS: 36415; 71045; 74176; 80048; 80053; 80061; 82565; 83036; 83605; 84484; 85025; 85652; 87040; 87070; 87077; 87186; 87205; 87426; 94640; 97110; 97530; G0378; J1956; J2001; J2185; J2543; J3490